=== PATIENT | female | born 1975 | race Caucasian/White ===

== ENCOUNTER 2018-03-27 08:08 | Inpatient (IN) ==
[2018-03-27] MEDS ORDERED: fentaNYL Citrate Inj 100 MCG/2 ML Ampul IV.PUSH PRN ×2 (09:03)
[2018-03-27] MEDS ORDERED: Naloxone Inj 0.4 MG/ML Vial IV.PUSH PRN (09:03)
[2018-03-27] MEDS ORDERED: Sodium Chlor 0.9% Inj 500 ML IV.SIG ONE (09:03)
[2018-03-27] MEDS ORDERED: Oxytocin 30 Units/500ml Premix 30 UNITS/500 ML BAG IV.SIG ONE (09:03)
[2018-03-27] MEDS ORDERED: Sod Chloride 0.9% Inj 1,000 ML IV.CONT SCH (09:15)
[2018-03-27] MEDS ORDERED: Citric Acid/Sodium Citrate Liq 30 ML UDC PO SCH (09:15)
--- NOTE | 2018-03-27 09:18 | P.HPOB ---
History of Present Illness Service: Obstetrics Primary Care Physician: UNKNOWN Chief Complaint: scheduled term labor induction History of Present Illness: 42 yo with EDC 03/25/18 presents for scheduled post-term labor induction due to AMA status. Pt has been followed throughout in office without complications other than AMA status. CfDNA and msAFP were negative, ultrasound imaging also normal. Pt has c/o mild cramps and pelvic pressure, no regular contractions, no LOF no VB, endorses good FM. Pain 1/10 low pelvic pressure. Weeks Gestation:: 40 Para: 2 : 3 Total # of Miscarriage(s): 0 Total # of Abortions (Spontaneous & Elective): 0 - Inpatient Certification If this patient has been admitted as an Inpatient: I certify that the inpatient services were ordered in accordance with Medicare regulations governing the order. This includes certification that hospital inpatient services are reasonable and necessary and in the case of services not specified as inpatient-only under 42 CFR 419.22(n), that they are appropriately provided as inpatient services in accordance to with the 2-midnight benchmark under 43 CFR 412.3(e) Estimated Total Length of Stay (Days): 4 Plans for Post Hospital Care: Home Review of Systems All other systems reviewed negative except as stated in HPI [facility] - Medical History Medical History: Medical History (Last Reviewed 03/27/18 @ 09:13 by Katia Michel MD) Advanced maternal age (AMA), 40 years or greater - Surgical History Surgical History: Surgical History (Last Reviewed 03/27/18 @ 09:13 by Katia Michel MD) History of right oophorectomy - Tobacco History Second Hand Smoke Exposure: No Tobacco Use In Past 30 Days: No Smoking Status: Never smoker - Travel History Recent Travel in the [place] Within the Last 8 Weeks: No Recent Travel Out of the Country Within the Last 8 Weeks: No Medications and Allergies Active Medications: Active Medications Citric Acid/Sodium Citrate (Sodium Citrate/Citric Acid Liq) 30 ml PO OPHTHALMIC MEDICAL TECHNOLOGIST VASILE Stop: 03/31/18 09:14 Dinoprostone (Cervidil Vag Insdert) 10 mg VAGINAL ONCE ONE Stop: 03/27/18 09:08 Fentanyl Citrate (Fentanyl Inj) 50 mcg IV.PUSH Q1H PRN PRN Reason: Pain Scale 3 - 5 Fentanyl Citrate (Fentanyl Inj) 100 mcg IV.PUSH Q1H PRN PRN Reason: PAIN SCALE 6 TO 10 Lactated Ringer's (Lr 1000 Ml Inj) 3,000 mls @ 3,000 mls/hr IV.SIG UNSCH ONE Stop: 03/27/18 10:02 Sodium Chloride (Ns Inj) 500 mls @ 0 mls/hr IV.SIG BOLUS ONE Stop: 03/27/18 09:04 Sodium Chloride (Ns Inj) 1,000 mls @ 100 mls/hr IV.CONT .Q10H VASILE Oxytocin (Pitocin 30 Units/Ns 500 Ml Premix) 30 units in 500 mls @ 0 mls/hr IV.SIG BOLUS ONE Stop: 03/27/18 09:04 Lidocaine HCl (Xylocaine 1% Inj) 0.1 ml INFILTRATN PRN PRN PRN Reason: For IV start Stop: 03/30/18 09:02 Lidocaine HCl (Xylocaine 1% Inj) 10 ml INFILTRATN PRN PRN PRN Reason: For episiotomy repair Stop: 03/29/18 09:02 Mineral Oil (Muri-Lube Oil) 10 ml TOPICAL PRN PRN PRN Reason: PRN perineal massage Naloxone HCl (Narcan Inj) 0.1 mg IV.PUSH Q2M PRN PRN Reason: for opiate reversal Sodium Chloride (Ns Flush) 2 ml IV.FLUSH BID VASILE Sodium Chloride (Ns Flush) 2 ml IV.FLUSH PRN PRN PRN Reason: FLUSH AFTER USING IV ACCESS Sodium Chloride (Ns Flush) 2 ml IV.FLUSH BID VASILE Sodium Chloride (Ns Flush) 2 ml IV.FLUSH PRN PRN PRN Reason: FLUSH AFTER USING IV ACCESS Allergies Allergy/AdvReac Type Severity Reaction Status Date / Time No Known Allergies Allergy Unknown none Uncoded 03/27/18 09:08 Exam Vital signs: Vital Signs 03/27/18 08:35 Temperature 98.2 F Pulse Rate 92 H Respiratory Rate 18 Blood Pressure 118/81 Intake & Output 03/26/18 03/27/18 03/27/18 18:59 06:59 18:59 Weight 89 kg Other: Weight On Admission 89 kg - Constitutional no acute distress - Routine HEENT Exam Head: Present: normocephalic, atraumatic - Routine Neck Exam Present: supple, full ROM - Routine Chest/Breast/Axilla Exam Chest wall: Absent: tenderness, mass Axillae: Absent: lymphadenopathy, rashes - Routine Respiratory Exam Absent: accessory muscle use, respiratory distress - Routine Cardiovascular Exam Present: RRR. Absent: murmur - Routine Abdominal Exam Present: soft, normoactive bowel sounds - Routine Exam Comments: office SVE 1-2//-3 posterior soft - Routine Extremities Exam Present: full ROM, pulses intact. Absent: cyanosis, edema - Routine Skin Exam Present: intact. Absent: erythema, mottling - Routine Neurological Exam Present: alert, oriented X3 Results - Labs Group B Strep: Negative Caprini VTE Risk Assessment Caprini VTE Risk Assessment: No/Low Risk (score <= 1) VTE Pharmacological Exception Reason: Epidural catheter Caprini Risk Assessment Model: Point Value = 1 Point Value = 2 Point Value = 3 Point Value = 5 Age 41-60 Minor surgery BMI > 25 kg/m2 Swollen legs Varicose veins or History of unexplained or recurrent spontaneous Oral contraceptives or hormone replacement Sepsis (< 1 month) Serious lung disease, including pneumonia (< 1 month) Abnormal pulmonary function Acute myocardial infarction Congestive heart failure (< 1 month) History of inflammatory bowel disease Medical patient at bed rest Age 61-74 Arthroscopic surgery Major open surgery (> 45 min) Laparoscopic surgery (> 45 min) Malignancy Confined to bed (> 72 hours) Immobilizing plaster cast Central venous access Age >= 75 History of VTE Family history of VTE Factor V Leiden Prothrombin [id number] Lupus anticoagulant Anticardiolipin antibodies Elevated serum homocysteine Heparin-induced thrombocytopenia Other congenital or acquired thrombophilia Stroke (< 1 month) Elective arthroplasty Hip, pelvis, or leg fracture Acute spinal cord injury (< 1 month) Prophylaxis Regimen: Total Risk Factor Score Risk Level Prophylaxis Regimen 0-1 Low Early ambulation 2 Moderate Order ONE of the following: *Sequential Compression Device (SCD) *Heparin 5000 units SQ BID 3-4 Higher Order ONE of the following medications: *Heparin 5000 units SQ TID *Enoxaparin/Lovenox 40 mg SQ daily (WT < 150 kg, CrCl > 30 mL/min) *Enoxaparin/Lovenox 30 mg SQ daily (WT < 150 kg, CrCl > 10-29 mL/min) *Enoxaparin/Lovenox 30 mg SQ BID (WT < 150 kg, CrCl > 30 mL/min) AND/OR *Sequential Compression Device (SCD) 5 or more Highest Order ONE of the following medications: *Heparin 5000 units SQ TID (Preferred with Epidurals) *Enoxaparin/Lovenox 40 mg SQ daily (WT < 150 kg, CrCl > 30 mL/min) *Enoxaparin/Lovenox 30 mg SQ daily (WT < 150 kg, CrCl > 10-29 mL/min) *Enoxaparin/Lovenox 30 mg SQ BID (WT < 150 kg, CrCl > 30 mL/min) AND *Sequential Compression Device (SCD) Assessment and Plan - Diagnosis (1) Post term Code(s): O48.0 - Post-term Status: Acute (2) Advanced maternal age (AMA) in Status: Chronic - Plan 42 yo with lópez IUP at 40w2d admit for scheduled post-term labor induction 1) IOL - cervidil ordered; pt aware of risks of IOL vs risks of post-term based on AMA status; consents to medically-indicated induction; will re-evaluate as needed for addt'l induction methods 2) GBS neg 3) status: vertex EFW 7# Cat I tracing on admit
[2018-03-27 09:53] LABS: Baso % (Auto) 0.7 % (0.0-2.0); Eos # (Auto) 0.1 th/mm3 (0.0-0.4); Hemoglobin 11.8 gm/dL (11.6-15.3); Lymph # (Auto) 1.3 th/mm3 (1.0-4.8); Lymph % (Auto) 23.2 % (9.0-44.0); Mean Corpuscular HGB Conc 32.7 % (32.0-36.0); Mean Corpuscular Hemoglobin 27.6 pg (27.0-34.0); Mean Corpuscular Volume 84.5 fL (80.0-100.0); Mean Platelet Volume 10.2 fL (7.0-11.0); Mono # (Auto) 0.5 th/mm3 (0.0-0.9); Mono % (Auto) 8.4 % (0.0-8.0); Neut # (Auto) 3.8 th/mm3 (1.8-7.7); Neut % (Auto) 66.7 % (16.0-70.0); Platelet Count 203 th/mm3 (150-450); Red Blood Count 4.26 mil/mm3 (4.00-5.30); Red Cell Distribution Width 14.8 % (11.6-17.2); White Blood Count 5.7 th/mm3 (4.0-11.0)
[2018-03-27 10:01] LABS: Amphetamine Urine With Conf Neg (Neg); Benzodiazepine Urine With Conf Neg (Neg)
--- NOTE | 2018-03-27 23:28 | P.OBGPN ---
to bedside to evaluate pt; cervidil removed at approx 2200P on 03/27/18; SVE changed from admit 1-/3 to 2-/-2; very posterior but head lower in pelvis; jake irregularly; cytotec 25mcg placed by (); Cat I tracing; anticipate
[2018-03-28 01:08] LABS: Bacteria,Urine Occasional /hpf; Bilirubin,Urine Negative (Negative); Clarity,Urine Hazy (Clear); Color,Urine Yellow (Yellw/Straw); Glucose,Urine (UA) Negative (Negative); Leukocyte Esterase,Urine Trace (Negative); Mucus,Urine Few /lpf (Occasional); Nitrite,Urine Negative (Negative); Specific Gravity,Urine 1.012 (1.002-1.035); Squamous Epithelial Cell,Urine 2 /hpf (0-5)
[2018-03-28] MEDS ORDERED: Oxytocin 30 Units/500ml Premix 30 UNITS/500 ML BAG IV.CONT PRN (06:00)
[2018-03-28] MEDS ORDERED: fentaNYL 2MCG-Bupiv 0.125% Epi 150 ML EPIDURAL ONE ×3 (09:41→12:00)
[2018-03-28] MEDS ORDERED: Diphtheria/Tetanus/Pertussis Vaccine Inj 0.5 ML Syringe IM ONE (16:00)
[2018-03-28] MEDS ORDERED: Measles/Mumps/Rubella Vaccine Inj 0.5 ML Vial SQ ONE (16:00)
[2018-03-28] MEDS ORDERED: Lidocaine PF 1% Inj 30 ML Vial ONE (17:32)
[2018-03-28] MEDS ORDERED: Zolpidem Tartrate 5 MG Tablet PO PRN (17:53)
[2018-03-28] MEDS ORDERED: Witch Hazel 50%/Glyderin 12.5% 40 Pad Jar RECTAL PRN (17:53)
[2018-03-28] MEDS ORDERED: Naloxone Inj 0.4 MG/ML Vial IV.PUSH PRN (17:53)
[2018-03-28] MEDS ORDERED: Bisacodyl 10 MG Supp RECTAL PRN (17:53)
[2018-03-28] MEDS ORDERED: Acetaminophen 325 MG Tablet PO PRN (17:53)
[2018-03-28] MEDS ORDERED: Ibuprofen 400 MG Tablet PO PRN (17:53)
[2018-03-28] MEDS ORDERED: Benzocaine 20% Top Spray 60 ML Can TOPICAL PRN (17:53)
--- NOTE | 2018-03-28 17:57 | P.OBDELI ---
Weeks Gestation: 40 Anesthesia: Epidural Episiotomy: none Vaginal Delivery: Normal Presentation: Vertex, Other (occult cord prolapse at neck with delivery of infant) Nuchal Cord: None Delayed Cord Clamping (45 sec): Yes Placenta: Spontaneous delivery, Intact, 3 vessel cord Laceration: None Estimated blood loss (mL): 100 Infant: Female, Single Infant Female A Infant Delivery Date: 03/28/18 Infant Delivery Time: 17:39 score (1 min): 9 score (5 min): 9
[2018-03-28] MEDS ORDERED: Oxytocin 30 Units/500ml Premix 30 UNITS/500 ML BAG IV.CONT SCH (18:00)
[2018-03-28 21:05] VITALS: RESP 18
[2018-03-28] MEDS: Senna/Docusate Sodium 8.6/50 MG Tablet PO SCH (22:59)
[2018-03-29 08:10] VITALS: BP 121/74
[2018-03-29 08:11] VITALS: PULSE 61; TEMP 98.2
[2018-03-29] MEDS: Senna/Docusate Sodium 8.6/50 MG Tablet PO SCH (08:51)
--- NOTE | 2018-03-29 09:58 | P.PNOB ---
Subjective Post day: 1 Objective Vital Signs/I&O: Vital Signs 03/28/18 10:11 03/28/18 10:16 03/28/18 10:20 Temperature Pulse Rate 71 71 67 Respiratory Rate 18 Blood Pressure 125/67 120/65 03/28/18 10:31 03/28/18 10:55 03/28/18 11:01 Temperature Pulse Rate 61 63 Respiratory Rate 18 Blood Pressure 111/63 92/52 L 03/28/18 11:31 03/28/18 11:41 03/28/18 12:01 Temperature 97.7 F Pulse Rate 62 53 L Respiratory Rate 18 Blood Pressure 118/79 127/77 03/28/18 12:32 03/28/18 13:01 03/28/18 13:32 Temperature Pulse Rate 59 L 58 L 79 Respiratory Rate 18 Blood Pressure 124/69 137/71 100/79 03/28/18 13:45 03/28/18 14:02 03/28/18 14:03 Temperature 98.1 F Pulse Rate 54 L Respiratory Rate 18 18 Blood Pressure 113/64 03/28/18 14:43 03/28/18 15:01 03/28/18 15:15 Temperature Pulse Rate 56 L 57 L Respiratory Rate 16 16 Blood Pressure 111/73 109/69 03/28/18 15:32 03/28/18 16:00 03/28/18 16:31 Temperature Pulse Rate 68 60 60 Respiratory Rate Blood Pressure 116/78 139/77 136/75 03/28/18 17:01 03/28/18 17:50 03/28/18 18:01 Temperature 99.3 F Pulse Rate 52 L 73 Respiratory Rate 18 Blood Pressure 130/84 122/50 L 03/28/18 18:05 03/28/18 18:16 03/28/18 18:20 Temperature Pulse Rate 63 64 Respiratory Rate 18 18 Blood Pressure 125/68 117/74 03/28/18 18:35 03/28/18 18:46 03/28/18 19:05 Temperature Pulse Rate 62 67 Respiratory Rate 18 18 Blood Pressure 115/73 108/68 03/28/18 19:35 03/28/18 20:02 03/28/18 20:05 Temperature 98.4 F Pulse Rate 72 71 Respiratory Rate 16 1 L Blood Pressure 111/57 L 95/78 L 03/28/18 20:50 03/29/18 08:00 Temperature 98.6 F 98.2 F Pulse Rate 74 61 Respiratory Rate 18 18 Blood Pressure 99/71 L 121/74 Result Diagrams: 03/27/18 08:45 Objective Remarks: GENERAL: Well-nourished, well-developed patient. CARDIOVASCULAR: Regular rate and rhythm without murmurs, gallops, or rubs. RESPIRATORY: Breath sounds equal bilaterally. No accessory muscle use. ABDOMEN/GI: Abdomen soft, non-tender. Fundus: Firm, non-tender at umbilicus. GENITOURINARY: Light bleeding. EXTREMITIES: No cyanosis or edema, non-tender, without signs of DVT. Has chronic L hip abduction issues; slightly sore s/p delivery but able to ambulate and bear full weight; per pt improving over past 12h Medications and IVs: Active Medications Acetaminophen (Tylenol) 650 mg PO Q4H PRN PRN Reason: PAIN SCALE 1 TO 2 Al Hydroxide/Mg Hydroxide (Milk Of Magnesia Liq) 30 ml PO Q12H PRN PRN Reason: Mild Constipation Benzocaine (Americaine 20% [place]) 1 spray TOPICAL Q4H PRN PRN Reason: For Perineum Discomfort Bisacodyl (Dulcolax Supp) 10 mg RECTAL DAILY PRN PRN Reason: SEVERE CONSITIPATION Lactulose (Lactulose Liq) 30 ml PO DAILY PRN PRN Reason: SEVERE CONSITIPATION Lidocaine HCl (Xylocaine 1% Inj) 0.1 ml INFILTRATN PRN PRN PRN Reason: For IV start Stop: 03/30/18 09:02 Naloxone HCl (Narcan Inj) 0.1 mg IV.PUSH Q2M PRN PRN Reason: for opiate reversal Ondansetron HCl (Zofran Odt) 4 mg PO Q6H PRN PRN Reason: NAUSEA OR VOMITING Oxycodone/Acetaminophen (Percocet 5/325 Mg) 1 tab PO Q4H PRN PRN Reason: PAIN SCALE 3 TO 5 Oxycodone/Acetaminophen (Percocet 5/325 Mg) 2 tab PO Q4H PRN PRN Reason: PAIN SCALE 6 TO 10 Last Admin: 03/29/18 08:51 Dose: 2 tab Senna/Docusate Sodium (Samantha-Colace) 1 tab PO BID VASILE Last Admin: 03/29/18 08:51 Dose: 1 tab Sennosides (Senokot) 17.2 mg PO Q12H PRN PRN Reason: Moderate Constipation Sodium Chloride (Ns Flush) 2 ml IV.FLUSH BID VASILE Sodium Chloride (Ns Flush) 2 ml IV.FLUSH PRN PRN PRN Reason: FLUSH AFTER USING IV ACCESS Witch Lindsay/Glycerin (Tucks Pads) 1 applicatio RECTAL QID PRN PRN Reason: HEMORRHOIDS Zolpidem Tartrate (Ambien) 5 mg PO HS PRN PRN Reason: SLEEP Assessment and Plan - Diagnosis (1) (spontaneous vaginal delivery) Code(s): O80 - Encounter for full-term uncomplicated delivery Status: Acute (2) Post term Code(s): O48.0 - Post-term Status: Acute (3) Advanced maternal age (AMA) in Code(s): 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
== END 2018-03-29 19:14 | disposition home or self-care (01) ==
LOC: H2E 08:08 → H1EA 03-28 20:17
PROVIDERS: ADMIT Obstetrics & Gynecology; ATTEND Obstetrics & Gynecology
DX: O69.0XX0 Labor and delivery complicated by prolapse of cord, not applicable or unspecified; O09.523 Supervision of elderly multigravida, third trimester; Z3A.40 40 weeks gestation of pregnancy; O48.0 Post-term pregnancy; Z37.0 Single live birth; M25.852 Other specified joint disorders, left hip; O90.89 Other complications of the puerperium, not elsewhere classified